=== PATIENT | male | born 1940 | race Caucasian/White ===

== ENCOUNTER → 2016-08-05 | Day surgery (SDC) | payer OTHER ==
[2016-08-05] VITALS (7 sets, daily range): BP systolic 125–145; BP diastolic 56–92; PULSE 53–56; TEMP 36.6; O2SAT 93–97; Ht 172.7 cm; Wt 96.0 kg
[~2016-08-05] VITALS: Ht 172.7 cm; Wt 96.0 kg
[~2016-08-05] MED LIST: ACET325T96 PO; AMIO100T PO; AMIO200T4 PO; BIOFTAB30 PO; CHOL1TAB4 PO; CMD5 PO; COEN1CAP17 PO; GUARCHW PO; LIDOCAINE HCL 2% 2 ML VIAL (20MG/ML) ONE; LISI5TAB3 PO; METO-217 PO; MULTCHW PO; OMEG10007 PO; OXYC-57 PO; PROPOFOL IV EMULSION 10 MG/ML 20 ML VIAL IV ONE; ROSU5TAB PO
--- NOTE | 2016-08-05 08:22 | Discharge Instructions ---
Discharge Instructions Procedure Procedure Date: Aug 05, 2016. Reason for Visit: A Santino Andres To Do*. Discharge Discharge Date: Aug 05, 2016. Discharge Diagnosis: Atrial fibrillation status post direct current cardioversion Last Recorded Wt (Kilograms): 96 Anesthesia Post Anesthesia Instructions: If you have had General Anesthesia or IV Sedation: * Do not drive today. * Resume driving when surgeon permits. * Do not make important decisions or sign legal documents today. * Call surgeon for: 1. Temperature elevations greater than 101 degrees F. 2. Uncontrollable pain. 3. Excessive bleeding. 4. Persistent nausea and vomiting. 5. Medication intolerance (nausea, vomiting or rash). * For nausea and vomiting use only clear liquids such as: tea, soda, bouillon until nausea subsides, then gradually increase diet as tolerated. * If you have any concerns or questions, call your surgeon's office. If physician is unavailable and it is an emergency, call 911 or go to the nearest emergency room. Instructions Activity Recommendations: limitations as noted below Return to School/Work: with the following limitations Recommended Home Diet: resume previous diet Allergies: Coded Allergies: No Known Allergies (Unverified , 06/21/13) Provider Instructions ACTIVITY RECOMMENDATIONS: Resume activities as tolerated with no limitations unless specified. _x_ No lifting over 20 pounds for 24 hours. _x_ Do not engage in vigorous exercise, sexual activity, or sports for 24 hours. _x_ Do not drive or operate any motorized equipment for 24 hours. _x_ You may return to work/school tomorrow. Follow Up Follow-up with: Cardiology next week. My office will call you with appointment. Martha Miller Recommendations: Call your doctor if: * Temperature above 101 degrees * Pain not relieved by pain medicine ordered * There is increased drainage or redness from any incision * You have any unanswered questions or concerns. Your Doctors Instructions noted above were prepared by provider Alfredo Galvan. Patient Signature Section: Patient Instructions Signature Page Davion Ayala Patient (or Guardian) Signature/Date: I have read and understand the instructions given to me by my caregivers. Caregiver/RN/Doctor Signature/Date: The above-named patient and/or guardian has received patient instructions on this date. + Original Patient Signature Page (only) stays with chart. Please make copy for patient.
--- NOTE | 2016-08-05 08:28 | CARDIOVERSION ---
DATE OF OPERATION: 08/05/2016 DIRECT CURRENT CARDIOVERSION INDICATION: Atrial fibrillation. PROCEDURAL SUMMARY: The patient was brought to the cardiac catheterization lab in the fasting state. Conscious sedation provided by the anesthesia service. Atrial fibrillation confirmed on monitor. The defibrillator pads were placed in the anterior and posterior position. When adequate sedation was achieved the defibrillator was synced to the QRS complex and charged to 200 joules. A single 200 joule shock was delivered. The patient was successfully converted to sinus bradycardia with one shock. He tolerated the procedure well. No complications. No neurologic deficits. CONCLUSION: Successful elective external direct cardioversion from atrial fibrillation to sinus rhythm. The patient will continue amiodarone 200 mg twice daily. I will arrange for cardiology followup in approximately one week. I attest to the content of the Intraoperative Record and any orders documented therein. Any exceptio ns are noted below.
--- NOTE | 2016-08-05 08:45 | Anesthesiology Progress Note ---
Anesthesia Post Op Note Date & Time Aug 05, 2016 at 08:45 Vital Signs Pain Intensity: 0.0 Vital Signs Past 12 Hours Date Time Temp Pulse Resp B/P Pulse Ox O2 Delivery O2 Flow Rate FiO2 08/05/16 08:30 54 16 122/90 93 Room Air 08/05/16 08:27 36.6 55 16 93 Room Air 08/05/16 08:20 55 16 129/85 93 Room Air 08/05/16 08:15 54 16 135/91 93 Room Air 08/05/16 08:10 55 16 134/75 93 Room Air 08/05/16 08:05 53 16 121/72 92 Room Air 08/05/16 08:00 52 16 120/72 92 Room Air 08/05/16 07:54 56 16 135/88 97 Nasal Cannula 3 08/05/16 07:51 53 16 145/76 97 Nasal Cannula 3 08/05/16 07:50 56 16 129/92 97 Nasal Cannula 3 08/05/16 07:49 55 16 138/90 97 Nasal Cannula 3 08/05/16 07:11 36.6 56 16 133/80 95 Room Air Notes Mental Status: alert / awake / arousable, participated in evaluation Pt Amnestic to Procedure: Yes Nausea / Vomiting: adequately controlled Pain: adequately controlled Airway Patency, RR, SpO2: stable & adequate BP & HR: stable & adequate Hydration State: stable & adequate Anesthetic Complications: no major complications apparent
== END | disposition home or self-care (01) ==
LOC: C.CATH 06:41
PROVIDERS: ATTEND Internal Medicine Cardiovascular Disease
DX: I48.0 Paroxysmal atrial fibrillation (principal); I48.2 Chronic atrial fibrillation; I10 Essential (primary) hypertension; Z79.01 Long term (current) use of anticoagulants; Z90.89 Acquired absence of other organs; Z98.890 Other specified postprocedural states; Z98.41 Cataract extraction status, right eye; Z98.42 Cataract extraction status, left eye; Z80.6 Family history of leukemia; Z80.42 Family history of malignant neoplasm of prostate; Z80.0 Family history of malignant neoplasm of digestive organs

== ENCOUNTER → 2016-11-10 | Outpatient (CLI) | payer OTHER ==
[~2016-11-10] MED LIST changes: -AMIO100T PO; -LIDOCAINE HCL 2% 2 ML VIAL (20MG/ML) ONE; -OXYC-57 PO; -PROPOFOL IV EMULSION 10 MG/ML 20 ML VIAL IV ONE; -ROSU5TAB PO
--- NOTE | 2016-11-14 14:11 | POLYSOMNOGRAPH REPORT ---
DATE OF STUDY: 11/10/2016. REFERRING PHYSICIAN: Dr. Maycol Wilson. CLINICAL DATA: The patient is a 76-year-old male with a BMI of 31.77. He is referred by Dr. Maycol Wilson. The patient has a history of snoring, nocturnal gasping, and observed apneas. He has a history of paroxysmal atrial fibrillation. His [place] Sleepiness Scale Score is 11 out of a possible 24. On the evening of 11/10/2016 a home sleep apnea test was performed using a [employer] type 3 monitor. RECORDING RESULTS: Total recording time was 10 hours. The patient's estimated sleep time was 9.6 hours. RESPIRATORY DATA: Severe sleep apnea was observed which includes both obstructive sleep apnea and central sleep apnea. The PATTI was severely elevated at 65.7 events per hour. There were 134 obstructive apneas, 188 mixed apneas, 181 central apneas, and 128 hypopneas. The longest respiratory event was 59 seconds. OXIMETRY DATA: The mean saturation for the night was 90%. The minimum saturation was 74%. He had an estimated 179 minutes less than 89%. HEART RATE DATA: The minimum heart rate was 47. The mean heart rate was 57. SNORING DATA: Snoring was recorded throughout the test. IMPRESSION: Severe sleep including both obstructive sleep apnea and central sleep apnea. RECOMMENDATIONS: 1. It is advised that the patient be treated as soon as feasible for severe sleep apnea. Ideally, he should have an in-lab CPAP titration study. However, he is currently wearing a neck brace because of a relatively recent fracture of the 2nd cervical vertebrae. In light of this, it may not be feasible at present to do an in-lab titration unless the brace is soon to come off. 2. The alternative would be an empiric treatment with auto CPAP and close observation soon thereafter with obtaining compliance data including apnea index shortly after the study is done. 3. If possible, the patient is advised to avoid sleeping in the supine position. 4. Weight loss is advised in light of the elevation of body mass index of 31.77. MTDD
== END | disposition home or self-care (01) ==
LOC: C.NEUR 13:15
PROVIDERS: ATTEND Family Medicine
DX: G47.33 Obstructive sleep apnea (adult) (pediatric) (principal)

== ENCOUNTER → 2016-11-24 | Outpatient (CLI) | payer OTHER ==
--- NOTE | 2016-11-25 06:46 | PAP/PSG TECHNICIAN REPORT ---
[facility] Hat Mender Polysomnogram Report Study name: None Report date: 11/25/2016 Study date: 11/24/2016 Referring Physician: HONORIO CHACON DO, DO Name: CHASE COLEMAN Interpreting Physician: Honorio Chacon D.O. Date of : 1940 Hat Mender: Mary Ellen Hernandez, PSGT. Sex: Male Age: 76 StudyType: PSG Weight: 209 lbs Height: 76 years, Height 5' 8" BMI: 31.77 Medications: Lisinopril 5 mg, Toprol XL 50 mg, Coumadin 5 mg, Amiodarone HCI 200 mg, Clindamycin Phosphate 1%. Patient History 76 YR. OLD MALE WITH A BMI OF 31.77 PRENTS TO THE SLEEP LAB FOR A TITRATION SLEEP STUDY. PT. HAD A IN HOME STUDY THAT HAD 65.7 EVENTS A HOUR.SEVERE SLEEP APNEA INCLUDING OBSTRUCTIVE AND CENTRALS. Parameters Monitored NPSG: E1-M2, E2-M1, Fp1-M2, Fp2-M1, F3-M2, F4-M2, F4-M1, C3-M2, C4-M2, C4-M1, O1-M2, O2-M2, O2-M1, T3-M2, T4-M1, P3-M2, P4-M1, CHIN1, CHIN2, HR, EKG, Legs, PFLOW, SNOR, FLOW, CFLOW, Tidal Volume, THOR, ABDO, SpO2, PLTH, CPRESS, ETCO2 Wave, ETCO2, pH Sleep Architecture Sleep Stages Time at Lights Off 9:44:24 PM STAGES Time (min.) TST (%) Time at Lights On 5:30:54 AM Wake 59.0 -- Total Recording Time (TRT) 467.00 min. N1 15.5 4 Total Sleep Period (TSP) 462.5 min. N2 299.5 74 Total Sleep Time (TST) 406.5min. N3 9.0 2 Awake Time 59.0 min. REM 82.5 20 Wake after Sleep Onset 56.0 min. Sleep Efficiency (SE) 87 % Sleep Onset Latency (KIM) 4.0 min. Number of Stage 1 Shifts None Awakenings 14 Stage Changes 61 Number of REM periods 6 REM 82.5 20 REM Latency 51.0 min. NREM 324.0 80 Body Position Analysis Supine Right Left Side Prone Vertical Total Sleep Time (min.) 402.3 0.0 35.1 35.10 0.0 0.0 Total Sleep Time (%) 91% 0% 9% 9 0% N/A% Total Sleep Time REM (min.) 58.0 0.0 24.5 None 0.0 0.0 Total Sleep Time NREM (min.) 313.4 0.0 10.6 None 0.0 0.0 Intermittent Wake (min.) 30.9 0.0 28.1 None 0.0 0.0 Total Sleep Period (%) 86% None None None None None Arousals Myoclonus (PLM) * Events Count Index Events Count Index Spontaneous 95 14 Events Awake (PLMW) 2 2.0 Respiratory 6 0.9 Events Asleep w/ Arousal (PLMA) 25 3.7 PLM 25 4 Events Asleep w/o Arousal (PLMS) 117 17.3 Snoring 0 0 Total Asleep 142 21.0 Total 126 19 Total 144 19 Respiratory Analysis * CA OA MA CH H RERA Total Count 20 18 1 0 29 1 68 Index 3.0 2.7 0.1 0 4.3 0 10.2 Mean Duration 20.3 18.1 22.2 0.00 20.4 14.2 19.7 Longest Duration 38.9 26.0 22.2 0.00 22.2 14.2 39.1 Respiratory Event Summary Total Supine ~Supine Right Left Prone REM NREM Apneas Count 39 39 0 N/A 0 N/A 0 39 Index 5.8 6 0 N/A 0.0 N/A 0 7 Hypopneas (4% Desat) Count 29 28 1 N/A 1 N/A 2 27 Index 4.3 4.5 2 N/A 1.7 N/A 1.5 5.0 Apneas & All Hypopneas Count 68 67 1 N/A 1 N/A 2 66 Index 10.0 11 2 N/A 2 N/A 1.5 12.2 Respiratory Events (Pollution Control Chemist+All Hyp+RERA) Count 68 68 1 N/A 1 N/A 2 66 Index 10.2 11 2 N/A 1.7 N/A 1.5 12.4 Respiratory Related Arousal Count 6 68 0 N/A 0 N/A 0 6 Index 0.9 1 0 N/A 0 N/A 0 1 Snoring Analysis Supine Right Left Prone REM NREM Total Snore duration 1.2 min Snores count 23 N/A 3 N/A 2 24 26 Snore mean duration 2.8 Sec Snores index 4 N/A 5 N/A 1.5 4.4 3.8 TST with snoring (%) 0.3% Desaturation Event Summary: Minimum %SpO2 Event Count Mean/Min/Max Duration(sec.) Desaturation Index % Time In Bed > 90 78 31.2 / 5.8 / 60.0 11.7 87.7 86 - 90 15 27.2 / 11.3 / 54.8 17.0 11.5 81 - 85 0 N/A 0.0 0.8 76 - 80 0 N/A 0.0 0.0 71 - 75 0 N/A 0.0 0.0 66 - 70 0 N/A 0.0 0.0 61 - 65 0 N/A 0.0 0.0 56 - 60 0 N/A 0.0 0.0 51 - 55 0 N/A 0.0 0.0 < 50 0 N/A 0.0 0.0 Total REM NREM Awake <50% 0.0 min. 0.0 min. 0.0 min. 0.0 min. 51 - 60% 0.0 min. 0.0 min. 0.0 min. 0.0 min. 61 - 70% 0.0 min. 0.0 min. 0.0 min. 0.0 min. 71 - 80% 0.1 min. 0.0 min. 0.0 min. 0.1 min. 81 - 90% 56.3 min. 24.9 min. 24.8 min. 6.7 min. 91 - 100% 401.1 min. 57.7 min. 298.9 min. 44.5 min. Average 92 92 93 93 Minimum SpO2 79 83 83 79 Desaturation Event Index 10.6 5.1 13.9 0.0 # Desat. Events below 89% 40 6 34 N/A Time(%) with Saturation below 89% 4.9 2.7 1.8 0.4 Time(min.) with Saturation below 89% 22.2 12.2 8.1 1.9 Time (mins) REM (mins) NREM (mins) % of TST SpO2 Below 90% 51 6 N45 7.6 SpO2 Below 88% 21 0 0 3 Heart Rate Analysis Min (bpm) Max (bpm) Average (bpm) Awake 46 127 53 NREM 45 65 51 REM 45 62 52 Overall 45 65 52 Supplemental O2 Values Minimum O2 level: None Value Start Time End Time Hat Mender Comments PAP Study: Mr. Coleman slept in the left, and supine positions. No cardiac arrhythmia or PLM's noted. No bruxism noted. CPAP was initiated at +4 CMH2O and up-titrated to an optimal level of +17 CMH2O, which nearly eliminated all respiratory events and snoring. A [employer] Air fit F10, was used during titration. This was the best fit for the patient being in a neck brace and being a mouth breather. awoke to use the restroom one time during the night. Mr. Coleman stated, that he has to wear the neck brace at least 6 more weeks and he is to only sleep supine. Pt. had a lot of respiratory events while supine, he did move to the left side and the events seemed to stop. He woke to use the restroom and went back to the supine position. A nasal mask was tried but the patient wasn't able to tolerate keeping his mouth closed. The final report will be interpreted and signed by a sleep physician. The completed physician report will then be placed in the patient medical record. Therapy Event: Therapy (cm H20) 4 6 8 10 12 14 16 17 Total Time at Pressure (min.) 20.6 23.0 28.8 26.1 13.3 22.8 107.7 223.3 TST at Pressure (min.) 16.1 20.0 28.8 25.1 11.3 22.8 105.7 176.8 # Periods 1 1 1 1 1 1 1 1 Sleep Onset (min.) 4.0 0.0 0.0 0.0 0.0 0.0 0.0 0.0 REM Onset (min.) N/A N/A 11.5 0.0 N/A N/A 79.0 72.3 Sleep Efficiency % 78 86 100 96 85 100 98 79 Wakefulness (%) 21.9 13.1 0.0 3.8 15.0 0.0 1.9 20.8 Wakefulness (min.) 4.5 3.0 0.0 1.0 2.0 0.0 2.0 46.5 NREM 1 (%) 7.3 13.1 0.0 3.8 0.0 0.0 2.8 3.1 NREM 1 (min.) 1.5 3.0 0.0 1.0 0.0 0.0 3.0 7.0 NREM 2 (%) 70.8 71.7 12.0 20.7 85.0 100.0 91.2 57.0 NREM 2 (min.) 14.6 16.5 3.5 5.4 11.3 22.8 98.2 127.3 NREM 3 (%) 0.0 2.2 27.8 0.0 0.0 0.0 0.0 0.2 NREM 3 (min.) 0.0 0.5 8.0 0.0 0.0 0.0 0.0 0.5 REM (%) 0.0 0.0 60.2 71.7 0.0 0.0 4.2 18.8 REM (min.) 0.0 0.0 17.3 18.7 0.0 0.0 4.5 42.0 # Arousals 7 12 3 6 9 4 49 36 Arousal Index 26.1 36.1 6.3 14.3 47.7 10.5 27.8 12.2 # Snore 0 3 1 2 3 0 10 7 Snore Index 0.0 9.0 2.1 4.8 15.9 0.0 5.7 2.4 AHI 63.4 33.1 12.5 14.3 58.3 13.2 6.2 0.3 AHI Supine 63.4 33.1 12.5 14.3 58.3 13.2 6.2 0.0 AHI Non-Supine N/A N/A N/A N/A N/A N/A N/A 1.7 NREM AHI 63.4 33.1 20.9 56.3 58.3 13.2 6.5 0.4 REM AHI N/A N/A 6.9 0.0 N/A N/A 0.0 0.0 RDI 63.4 33.1 14.6 14.3 58.3 13.2 6.2 0.3 # Obstructive 8 0 0 0 1 4 5 0 # Central Ap 2 5 0 3 9 1 0 0 # Mixed 1 0 0 0 0 0 0 0 # Hypopneas 6 6 6 3 1 0 6 1 RERAS 0 0 1 0 0 0 0 0 Total Respiratory Events 17 11 7 6 11 5 11 1 Time Below SpO2 89.00% (min.) 3.3 2.4 13.9 0.7 0.0 0.0 0.0 0.0 Mean NREM SpO2 (%) 90 91 90 94 94 92 93 93 Mean REM SpO2 (%) N/A N/A 88 91 N/A N/A 93 93 Mean Sleep SpO2 (%) 90 91 89 92 94 92 93 93 Min NREM SpO2 (%) 83 87 83 89 91 91 90 90 Min REM SpO2 (%) N/A N/A 83 87 N/A N/A 90 91 Position Supine (min.) 16.1 20.0 28.8 25.1 11.3 22.8 105.7 141.7 Position Non-supine (min.) 0.0 0.0 0.0 0.0 0.0 0.0 0.0 35.1 LM Index Sleep 0.0 21.0 12.5 14.3 37.1 39.5 48.3 5.4 LM Index NREM 0.0 21.0 20.9 46.9 37.1 39.5 49.8 5.3 LM Index REM N/A N/A 6.9 3.2 N/A N/A 13.3 5.7 Mean Heart Rate (bpm) 59 57 57 55 52 52 51 49 Min Heart Rate (bpm) 54 50 50 49 47 47 46 45
--- NOTE | 2016-11-26 20:46 | POLYSOMNOGRAPH REPORT ---
PRIMARY CARE PHYSICIAN: Maycol Wilson DO CLINICAL DATA: The patient is a 76-year-old male with a history of snoring, nocturnal gasping and observed apnea. He completed the [place] sleepiness scale and had a score of 11 out of a possible 24. The patient had a home sleep study done on 11/10/2016. This showed severe sleep apnea with an apnea hypopnea index of 65.7. There was both obstructive and central sleep apneas. Oxygen saturations were as low as 74%. The patient is currently wearing a neck brace. He has a history of atrial fibrillation. He comes to the sleep disorder center for an in-lab CPAP titration study. SLEEP ARCHITECTURE: The total sleep period was 462.5 minutes. The total sleep time was 406.5 minutes. The sleep efficiency was near normal at 87%. Sleep latency was 4 minutes. Wake after sleep onset was 56 minutes. REM latency was slightly shortened to 51 minutes. Sleep consisted of stage N1 4%, stage N2 74%, stage N3 2% and stage REM 20%. AROUSAL DATA: The patient had a total of 126 arousals including 95 spontaneous arousals, 6 respiratory arousals and 25 PLM arousals. The arousal index was 19. PLM DATA: The patient had 142 periodic limb movements of sleep for an index of 21.0. There were 25 arousals, resulting in a PLM arousal index of 3.7. EKG: The underlying cardiac rhythm was normal sinus. The cardiac rates ranged from 45-65 with an average of 52 beats per minute. No arrhythmias were noted. RESPIRATORY DATA: The patient's nocturnal events were treated with nasal CPAP. For the night he had a total of 68 respiratory events including 20 central apneas, 18 obstructive apneas, 1 mixed apnea and 29 hypopneas. Hypopneas were scored by the 4% desaturation rule. The apnea-hypopnea index was 10.0 events per hour. It is to be noted that at the final pressure of 17 cm his apnea-hypopnea index was only 0.3 and he was at that pressure for more than 3 hours. OXIMETRY DATA: The average saturation was 92%. The minimum saturation was 79%. That desaturation would appear to be technical in nature as it was for a very brief time and just once during the night. Saturations at the final pressure appeared normal. IMPRESSION: 1. Obstructive sleep apnea -- resolved with nasal CPAP at 17 cm. 2. Periodic limb movement disorder. COMMENTS: The patient did very well with nasal CPAP therapy. It required fairly high pressures to resolve his apnea. His sleep got better as the night went on and the pressures were higher. His oxygenation normalized. He did have a modest number of limb movements which were mainly in the first half of the night. This is not unexpected with resolution of sleep disordered breathing. RECOMMENDATIONS: 1. It is advised that the patient be started on nasal CPAP at 17 cm. 2. It is suggested that he be ordered a [employer] AirFit F10. He tolerated this well despite wearing the neck brace. 3. It is suggested that the patient initiate a weight reduction program in light of his elevated BMI of 31.77. 4. Clinical followup is required to evaluate his response to nasal CPAP therapy. He should be seen between day 31 and day 90 after receiving his CPAP.
== END | disposition home or self-care (01) ==
LOC: C.NEUR 21:00
PROVIDERS: ATTEND Internal Medicine Pulmonary Disease
DX: G47.33 Obstructive sleep apnea (adult) (pediatric) (principal)